=== PATIENT | female | born 1985 | race African-American/Black ===

== ENCOUNTER 2017-06-23 07:36 | Inpatient (IN) | payer OTHER ==
[~2017-06-23] VITALS: Ht 160 cm; Wt 57.3 kg
[2017-06-23 07:57] VITALS: BP 109/63
[2017-06-23] MEDS ORDERED: LACTATED RINGERS 1,000 ML IV SCH (08:03)
[2017-06-23] MEDS ORDERED: CEFAZOLIN PMX 2GM/50ML 50 ML IV ONE (08:30)
[2017-06-23] MEDS ORDERED: LACTATED RINGERS 1,000 ML IVBOLUS ONE (08:30)
[2017-06-23] MEDS ORDERED: CEFAZOLIN 2,000 MG in SODIUM CHLORIDE 0.9% 50 ML IV ONE (08:30)
[2017-06-23] MEDS ORDERED: SODIUM CHLORIDE 0.45% 100 ML IV ONE (08:30)
[2017-06-23 08:48] LABS: HEMATOCRIT 36.7 % (34.6-47.8); HEMOGLOBIN 12.4 g/dL (11.7-16.4); WHITE BLOOD COUNT 9.5 x10^3/uL (3.4-10)
[2017-06-23] MEDS ORDERED: EPHEDRINE 50 MG/ML, 1ML ONE (09:26)
[2017-06-23] MEDS ORDERED: KETOROLAC 30 MG/1 ML ONE (09:26)
[2017-06-23] MEDS ORDERED: MAGNESIUM SULF. PMX 20GM/500ML 500 ML IV SCH (10:53)
[2017-06-23] MEDS ORDERED: MAGNESIUM SULFATE PMX 4GM/100M 100 ML ONE (10:57)
[2017-06-23] MEDS ORDERED: ONDANSETRON 2MG/ML, 2ML ONE (10:58)
[2017-06-23] MEDS ORDERED: MAGNESIUM SULF. PMX 20GM/500ML 500 ML IV ONE ×2 (10:58→20:47)
[2017-06-23] MEDS ORDERED: MAGNESIUM SULFATE PMX 4GM/100M 100 ML IVPB ONE (11:00)
[2017-06-23] MEDS ORDERED: ONDANSETRON 2MG/ML, 2ML IVPush PRN (11:00)
[2017-06-23] MEDS ORDERED: CEFAZOLIN 2,000 MG in SODIUM CHLORIDE 0.9% 50 ML IV SCH (11:00)
[2017-06-23] MEDS ORDERED: OXYcodone 5 MG/5 ML ORAL.SOL UDC PO PRN (11:00)
[2017-06-23] MEDS ORDERED: FENTANYL PF 100 MCG/2ML IV PRN (11:00)
[2017-06-23] MEDS ORDERED: OXYcodone/APAP 5/325MG TABLET PO PRN (11:00)
[2017-06-23] MEDS ORDERED: PREN-3 PO (11:21)
[2017-06-23] MEDS ORDERED: PROG200C2 HOMEVAG (11:21)
[2017-06-23] MEDS ORDERED: DOCO100C PO (11:22)
[2017-06-23] MEDS ORDERED: FLU VACC QS2017-18 (36MOS+) UP/PF 0.5 ML IM-VACC ONE (11:30)
[2017-06-23] MEDS: INDOMETHACIN 25 MG CAPSULE PO SCH ×2 (11:37→17:59)
[2017-06-23] MEDS: LACTATED RINGERS 1,000 ML IV SCH (12:09)
[2017-06-23] MEDS: CEFAZOLIN PMX 2GM/50ML 50 ML IVPB SCH (15:58)
[2017-06-23 16:20] VITALS: BP 97/52
[2017-06-23 19:30] VITALS: BP 96/53
[2017-06-23] MEDS: MAGNESIUM SULF. PMX 20GM/500ML 500 ML IV SCH (21:43)
[2017-06-24] MEDS: CEFAZOLIN PMX 2GM/50ML 50 ML IVPB SCH ×2 (00:09→08:23)
[2017-06-24] MEDS ORDERED: INDOMETHACIN 50 MG CAPSULE PO SCH (06:00)
[2017-06-24] MEDS ORDERED: INDOMETHACIN 25 MG CAPSULE PO SCH (06:00)
[2017-06-24 08:30] VITALS: BP 99/60
[2017-06-24] MEDS ORDERED: MAGNESIUM SULF. PMX 20GM/500ML 500 ML IV ONE (08:37)
[2017-06-24] MEDS: MAGNESIUM SULF. PMX 20GM/500ML 500 ML IV SCH (08:39)
[2017-06-24] MEDS ORDERED: MAGNESIUM SULF. PMX 20GM/500ML 500 ML IV SCH (10:53)
[2017-06-24 13:30] VITALS: BP 95/56
[2017-06-24] MEDS ORDERED: INDOMETHACIN 50 MG CAPSULE PO ONE (14:00)
[2017-06-24] MEDS: LACTATED RINGERS 1,000 ML IV SCH (16:16)
[2017-06-24 21:00] VITALS: BP 108/61
[2017-06-25 08:05] VITALS: BP 102/56
[2017-06-25] MEDS ORDERED: PRENATAL VIT/IRON/FA 1 EACH TABLET PO SCH (12:30)
[2017-06-25] MEDS: INDOMETHACIN 50 MG CAPSULE PO SCH (15:59)
[2017-06-26] MEDS: INDOMETHACIN 50 MG CAPSULE PO SCH ×3 (00:04→16:29)
[2017-06-26] MEDS ORDERED: PRENATAL VIT/IRON/FA 1 EACH TABLET ONE (08:44)
[2017-06-26] MEDS ORDERED: INDOMETHACIN 50 MG CAPSULE ONE ×2 (08:44→15:45)
[2017-06-26] MEDS ORDERED: DOCUSATE 100 MG CAPSULE ONE (15:44)
== END 2017-06-26 21:35 | disposition home or self-care (01) | DRG 782 ==
LOC: LDOP 07:36 → LDIP 07:48 → OBSVTOIN 08:03 → LDIP 11:09
PROVIDERS: ADMIT Obstetrics & Gynecology Maternal & Fetal Medicine; ATTEND Obstetrics & Gynecology Maternal & Fetal Medicine
PROC: 0UVC7ZZ Restriction of Cervix, Via Natural or Artificial Opening (ICD-10-PCS; principal; 2017-06-23)
DX: O34.32 Maternal care for cervical incompetence, second trimester (principal); O60.02 Preterm labor without delivery, second trimester; Z3A.24 24 weeks gestation of pregnancy
CPT/HCPCS: 36415; 83735; 85025; 90686; J0690; J1885; J2405; G0378; J3475; J7120

== ENCOUNTER 2017-07-13 09:18 | Observation (INO) | payer OTHER ==
[~2017-07-13] VITALS: Ht 160 cm; Wt 65.5 kg
[~2017-07-13 09:18] MED LIST: DOCO100C PO; PREN-3 PO; PROG200C2 HOMEVAG
[2017-07-13 09:30] VITALS: BP 110/67
== END 2017-07-13 18:17 | disposition home or self-care (01) ==
LOC: LDOP 09:18 → LDIP 13:28
PROVIDERS: ADMIT Obstetrics & Gynecology; ATTEND Obstetrics & Gynecology
DX: O62.9 Abnormality of forces of labor, unspecified (principal); Z3A.25 25 weeks gestation of pregnancy
CPT/HCPCS: 59025; G0378

== ENCOUNTER 2017-09-29 14:05 | Outpatient (CLI) | payer BC, OTHER ==
[~2017-09-29] VITALS: Ht 160 cm; Wt 65.0 kg
[2017-09-29 14:12] VITALS: BP 114/74
== END 2017-09-29 15:40 | disposition home or self-care (01) ==
LOC: LDOP 14:05
PROVIDERS: ATTEND Obstetrics & Gynecology
DX: O26.873 Cervical shortening, third trimester (principal); O34.33 Maternal care for cervical incompetence, third trimester; Z3A.36 36 weeks gestation of pregnancy
CPT/HCPCS: 59025; 59871; 99211; G0463